=== PATIENT | female | born 1955 | race Caucasian/White ===

== ENCOUNTER 2016-11-18 16:33 | Emergency (ER) | payer OTHER ==
[~2016-11-18] VITALS: Ht 165.1 cm; Wt 75.0 kg
[2016-11-18 17:28] LABS: ADD MIUA? NO; BILIRUBIN NEGATIVE; BLOOD NEGATIVE; COLOR YELLOW ((YELLOW)); GLUCOSE (STRIP) NEGATIVE; KETONES NEGATIVE; LEUKOCYTES NEGATIVE; NITRITE NEGATIVE; PROTEIN (STRIP) NEGATIVE; SPECIFIC GRAVITY 1.009 (1.000-1.030); UCUL ADDED? NO; UROBILINOGEN 0.2 MG/DL (0.2-1.0)
[2016-11-18 17:56] LABS: HEMATOCRIT 40.1 % (36.0-46.0); MCH 30.5 PG (29.0-34.0); MCHC 33.9 G/DL (30.0-36.0); MCV 89.9 FL (83-99); MEAN PLAT.VOLUME 9.7 uM^3 (9.5-12.4); PLATELET COUNT 284 K/uL (156-360); RBC DIS.WIDTH-CV 12.2 % (11.8-14.6); RED BLOOD COUNT 4.46 M/uL (3.80-5.20)
[2016-11-18 17:58] LABS: WHITE BLOOD COUNT 6.3 K/uL (4.1-10.2)
[2016-11-18 18:03] LABS: CHLORIDE 105 mEq/L (99-109); POTASSIUM 4.4 mEq/L (3.7-5.4); SODIUM 140 mEq/L (136-147)
[2016-11-18 18:05] LABS: GLUCOSE 91 mg/dL (70-99)
[2016-11-18 18:06] LABS: ANION GAP 11 MEQ/L (2-14)
[2016-11-18 18:07] LABS: TOTAL BILIRUBIN 0.6 mg/dL (0.0-1.0)
[2016-11-18 18:08] LABS: ALKALINE PHOSPHATASE 97 IU/L (3-129)
[2016-11-18 18:09] LABS: GFR ESTIMATE (CALCULATED) > 59 mL/min/
[2016-11-18 18:10] LABS: UREA NITROGEN (BUN) 17 mg/dL (9-23)
[2016-11-18] MEDS ORDERED: FLAGYL500 MG PO (19:43)
[2016-11-18] MEDS ORDERED: CIPRO500 MG PO (19:43)
[2016-11-18] MEDS ORDERED: TRAMADOL HCL50 MG PO (20:00)
[2016-11-18 20:07] VITALS: BP 154/82
== END 2016-11-18 20:08 | disposition home or self-care (01) ==
LOC: EME 16:33
PROVIDERS: Physician Assistant
DX: K57.33 Diverticulitis of large intestine without perforation or abscess with bleeding (principal)
CPT/HCPCS: 74176; 80053; 81003; 85027; 99281; 99285; J7030

== ENCOUNTER 2017-03-06 09:14 | Emergency (ER) | payer OTHER ==
[~2017-03-06] VITALS: Ht 165.1 cm; Wt 75.5 kg
[~2017-03-06 09:14] MED LIST: CIPRO500 MG PO; FLAGYL500 MG PO; TRAMADOL HCL50 MG PO
[2017-03-06 10:33] LABS: HEMATOCRIT 40.7 % (36.0-46.0); MCH 30.3 PG (29.0-34.0); MCHC 33.7 G/DL (30.0-36.0); MEAN PLAT.VOLUME 9.3 uM^3 (9.5-12.4); PLATELET COUNT 277 K/uL (156-360); RBC DIS.WIDTH-CV 12.4 % (11.8-14.6); RED BLOOD COUNT 4.52 M/uL (3.80-5.20); WHITE BLOOD COUNT 7.1 K/uL (4.1-10.2)
[2017-03-06 10:48] LABS: CHLORIDE 107 mEq/L (99-109); POTASSIUM 4.2 mEq/L (3.7-5.4); SODIUM 138 mEq/L (136-147)
[2017-03-06 10:50] LABS: GLUCOSE 90 mg/dL (70-99)
[2017-03-06 10:51] LABS: ANION GAP 6 MEQ/L (2-14)
[2017-03-06 10:52] LABS: TOTAL BILIRUBIN 0.6 mg/dL (0.0-1.0)
[2017-03-06 10:53] LABS: ALKALINE PHOSPHATASE 99 IU/L (3-129)
[2017-03-06 10:53] LABS: ADD MIUA? NO; BILIRUBIN NEGATIVE; BLOOD NEGATIVE; COLOR YELLOW ((YELLOW)); GLUCOSE (STRIP) NEGATIVE; KETONES NEGATIVE; LEUKOCYTES NEGATIVE; NITRITE NEGATIVE; PROTEIN (STRIP) NEGATIVE; SPECIFIC GRAVITY 1.011 (1.000-1.030); UROBILINOGEN 0.2 MG/DL (0.2-1.0)
[2017-03-06 10:54] LABS: GFR ESTIMATE (CALCULATED) > 59 mL/min/
[2017-03-06 10:55] LABS: DIRECT BILIRUBIN 0.2 mg/dL (0.0-0.3); UREA NITROGEN (BUN) 19 mg/dL (9-23)
[2017-03-06 10:57] LABS: LIPASE 46 U/L (1.0-51.0)
[2017-03-06] MEDS ORDERED: FLAGYL500 MG PO (12:09)
[2017-03-06] MEDS ORDERED: CIPRO500 MG PO (12:09)
[2017-03-06 12:32] VITALS: BP 135/61
== END 2017-03-06 12:32 | disposition home or self-care (01) ==
LOC: EME 09:14
PROVIDERS: Emergency Medicine
DX: K52.9 Noninfective gastroenteritis and colitis, unspecified (principal); Z91.041 Radiographic dye allergy status; Z88.6 Allergy status to analgesic agent
CPT/HCPCS: 74176; 80048; 80076; 81003; 83690; 85027; 87086; 99281; 99285; J7030